=== PATIENT | male | born 1960 | race Caucasian/White ===

== ENCOUNTER 2022-02-10 10:36 | Emergency (ER) | payer BC, SELFPAY ==
[~2022-02-10] VITALS: Ht 167.6 cm; Wt 95.5 kg
[~2022-02-10 10:36] MED LIST: AMIO200T61 PO; ASPI-1265 PO; BUSP10TA11 PO; CARV-49 PO; CLOP75TA34 PO; LISI-222 PO; SERT-128 PO; SIMV40TA PO
[2022-02-10] MEDS: CefTRIAXone 2gm/NS 100ml IVPB 100 ML IV ONE (13:01)
[2022-02-10 13:10] LABS: BASOPHILS % (AUTO) 0.3 % (0-1); EOSINOPHILS # (AUTO) 0.1 X10'3 (0-0.9); EOSINOPHILS % (AUTO) 1.1 % (0-6); HEMATOCRIT 38.7 % (42.0-52.0); HEMOGLOBIN 13.3 g/dl (14.0-17.9); LYMPHOCYTES # (AUTO) 1.4 X10'3 (1.1-4.8); LYMPHOCYTES % (AUTO) 13.9 % (21-51); MEAN CORPUSCULAR HEMOGLOBIN 33.7 PG (27.0-31.0); MEAN CORPUSCULAR HGB CONC 34.3 g/dL (33.0-36.5); MEAN CORPUSCULAR VOLUME 98.2 FL (78-98); MEAN PLATELET VOLUME 9.6 FL (7.4-10.4); MONOCYTES # (AUTO) 1.1 X10'3 (0-0.9); MONOCYTES % (AUTO) 10.4 % (2-12); NEUTROPHILS # (AUTO) 7.5 X10'3 (1.8-7.7); NEUTROPHILS % (AUTO) 74.3 % (42-75); PLATELET COUNT 134 X10'3 (140-440); RED BLOOD COUNT 3.95 X10'6 (4.70-6.10); RED CELL DISTRIBUTION WIDTH 12.9 % (11.5-14.5); WHITE BLOOD COUNT 10.2 X10'3 (4.5-11.0)
[2022-02-10 13:27] LABS: ALANINE AMINOTRANSFERASE 31 U/L (12-78); ALBUMIN 3.7 G/DL (3.4-5.0); ALBUMIN/GLOBULIN RATIO 0.8 (1.1-1.5); ALKALINE PHOSPHATASE 65 IU/L (46-116); ANION GAP 6 (8-16); ASPARTATE AMINO TRANSFERASE 25 U/L (10-37); BILIRUBIN,TOTAL 0.6 MG/DL (0.1-1.0); BLOOD UREA NITROGEN 22 MG/DL (7-18); CALCIUM 8.7 MG/DL (8.5-10.1); CHLORIDE 104 MMOL/L (99-107); CREATININE 1.05 MG/DL (0.60-1.10); GLUCOSE 109 MG/DL (70-104); SODIUM 134 MMOL/L (135-145); TOTAL CARBON DIOXIDE 23.6 MMOL/L (24-32); TOTAL PROTEIN 8.1 G/DL (6.4-8.2); eGFR 71 ML/MIN
[2022-02-10] MEDS ORDERED: SULF1TAB48 PO (13:32)
[2022-02-10] MEDS ORDERED: CEPH-585 PO (13:32)
[2022-02-10 13:38] LABS: MAGNESIUM 2.2 MG/DL (1.5-2.4)
[2022-02-10] MEDS: vancomycin/NS 1 GM ADD-VANTAGE 250 ML IV ONE (13:48)
[2022-02-10 15:26] VITALS: BP 122/80
== END 2022-02-10 15:27 | disposition home or self-care (01) ==
LOC: ER 10:36
DX: L03.114 Cellulitis of left upper limb (principal); I10 Essential (primary) hypertension; F41.9 Anxiety disorder, unspecified; F32.A Depression, unspecified; Z79.82 Long term (current) use of aspirin; Z79.2 Long term (current) use of antibiotics; Z79.899 Other long term (current) drug therapy
CPT/HCPCS: 36415; 80053; 83605; 83735; 84145; 85025; 87040; 96365; 96366; 96368; 99284; J0696; J3370

== ENCOUNTER 2024-08-16 08:41 | Outpatient (CLI) | payer BC ==
[~2024-08-16 08:41] MED LIST changes: +AMI200T PO; -AMIO200T61 PO; +SIMV-343 PO; -SIMV40TA PO
== END 2024-08-16 23:59 | disposition home or self-care (01) ==
LOC: RAD 08:41
PROVIDERS: ATTEND Podiatrist Foot & Ankle Surgery
DX: M19.071 Primary osteoarthritis, right ankle and foot (principal); M21.171 Varus deformity, not elsewhere classified, right ankle; M77.31 Calcaneal spur, right foot; M25.471 Effusion, right ankle; M25.871 Other specified joint disorders, right ankle and foot
CPT/HCPCS: 73700

== ENCOUNTER 2025-07-19 05:50 | Day surgery (SDC) | payer BC, MEDICARE ==
[2025-07-12 10:38] LABS: MEAN PLATELET VOLUME 9.3 FL (7.4-10.4); PRE OP HEMATOCRIT 36.8 % (42.0-52.0); PRE OP HEMOGLOBIN 12.9 g/dL (14.0-17.9); PRE OP PLATELET COUNT 118 X10'3 (140-440); PRE OP WHITE BLOOD COUNT 5.6 10'3 (4.8-10.8); RED CELL DISTRIBUTION WIDTH 12.6 % (11.5-14.5)
[2025-07-12 10:56] LABS: CREATININE 1.05 MG/DL (0.60-1.10); PRE OP ALT 46 U/L (30-65); PRE OP ANION GAP 9 (8-16); PRE OP AST 38 U/L (10-37); PRE OP BILIRUB, TOTAL 0.4 MG/DL (0.0-1.0); PRE OP POTASSIUM 4.6 MMOL/L (3.4-5.1); PRE OP SODIUM 138 MMOL/L (135-145); TOTAL CARBON DIOXIDE 23.6 MMOL/L (24-32); eGFR 71 ML/MIN
[2025-07-12 11:17] LABS: PRE OP GLUCOSE 108 MG/DL (70-104)
--- NOTE | 2025-07-12 11:40 | RADIOLOGY REPORT ---
DI CHEST,TWO VIEWS, HISTORY: PREOP COMPARISON: None None TECHNICAL DATA: 2 view of the chest was obtained. FINDINGS: Lines and tubes: A cardiac pacer is noted. Cardiomediastinal silhouette: normal Pulmonary vasculature: normal Lung expansion: normal Lung airspace: normal Lung interstitium: normal Pleura: normal Pneumothorax: no Bones: Unremarkable Other: no IMPRESSION: No acute intrathoracic abnormality.
[2025-07-19] VITALS (18 sets, daily range): BP systolic 94–139; BP diastolic 63–92; PULSE 54–79; RESP 13–17; TEMP 96.9; O2SAT 94–100
[~2025-07-19] VITALS: Ht 170.2 cm; Wt 91.0 kg
[2025-07-19] MEDS: DOCUMENT DATE & TIME OF BETA-BLOCKER PO ONE (05:00)
[~2025-07-19 05:50] MED LIST changes: +ALBU8HFA PO; -AMI200T PO; +AMLO-382 PO; -ASPI-1265 PO; -CARV-49 PO; +CARV-50 PO; -CLOP75TA34 PO; -LISI-222 PO; +ROSU40TA89 PO; -SIMV-343 PO; +ringers solution, lacted 1,000 ML IV SCH
[2025-07-19] MEDS: ceFAZolin 2gm/dext,iso 50mL 50 ML IV ONE (05:53)
[2025-07-19] MEDS: ringers solution, lacted 1,000 ML IV SCH ×2 (06:11→09:05)
[2025-07-19] MEDS: VANCOMYCIN/H2O 1.5g/300mL PB 300 ML IV ONE (06:12)
[2025-07-19] MEDS ORDERED: BUPIVACAINE/MELOXICAM 14 ML VIAL IL ONE (06:38)
[2025-07-19] MEDS ORDERED: cloNIDine hcl/PF 100mcg/ml inj ONE (07:13)
[2025-07-19] MEDS ORDERED: fentaNYL/PF 50MCG/1 ML 2ML syringe ONE (07:16)
[2025-07-19] MEDS ORDERED: MIDAZolam 1 MG/ML 5ML VIAL ONE (07:17)
[2025-07-19] MEDS ORDERED: propofol inj 20 ML IV ONE (07:18)
[2025-07-19] MEDS ORDERED: HYDROcodone/acetaminophen 10/325mg tab PO PRN (07:20)
[2025-07-19] MEDS: BUPIVACAINE/MELOXICAM 14 ML VIAL IL ONE (08:16)
[2025-07-19] MEDS ORDERED: ROPIVAcaine 0.5% (5mg/ml) 30ml vial ONE (08:56)
[2025-07-19] MEDS ORDERED: morphine 4 MG/ML inj SYRINge IV PRN (09:05)
[2025-07-19] MEDS ORDERED: hydrALAZINE 20mg/ml inj. IV PRN (09:05)
[2025-07-19] MEDS ORDERED: labetalol 20mg/4ml (5mg/ml) syringe IV PRN (09:05)
[2025-07-19] MEDS ORDERED: HYDROmorphone/PF 0.2 MG/ML SYRINGE IV PRN ×2 (09:05)
[2025-07-19] MEDS ORDERED: ondansetron/PF 4mg/2ml inj IV PRN (09:05)
[2025-07-19] MEDS ORDERED: acetaminophen 1,000mg/100ml IV 100 ML IV PRN (09:05)
--- NOTE | 2025-07-19 09:32 | DISCHARGE SUMMARY ---
Discharge Summary Ortho [facility] ~ Discharge Summary Discharge Date: Jul 19, 2025 *Problems/Diagnosis: (1) S/P total knee arthroplasty Admission Diagnosis: osteoarthritis Discharge Diagnosis\Comment: see above Operations\Procedures see above Consultants: none Complications: none Condition on DC: Stable Discharge Summary: Patient underwent total knee arthroplasty on date of admission no complications in surgery. Patient all recovery was uneventful. The patient is safe to discharge home so long as he meets discharge criteria. Medications Home Meds: Home Medications Active Reported Carvedilol 12.5 Mg Tablet 1 Tab PO Q12H 30 Days Pro-Air Inhaler (Albuterol) 8.5 Gm Inhaler 1-2 Puffs PO Q4H PRN Amlodipine-Valsartan 10-320 mg (Amlodipine/Valsartan) 10 Mg-320 Mg Tablet 1 Tab PO DAILY Rosuvastatin Calcium 40 Mg Tablet 1 Tab PO HS Zoloft (Sertraline HCl) 100 Mg Tablet 150 Mg PO HS Buspar* (Buspirone HCl) 10 Mg Tablet 1 Tab PO BID Supervising Physician Supervising Physician: Dr. Edison Delvalle Problem Qualifiers (1) S/P total knee arthroplasty: Qualified Codes: Z96.652 - Presence of left artificial knee joint MARGARITA CLAYTON Jul 19, 2025 09:32
--- NOTE | 2025-07-19 09:51 | OPERATIVE REPORT ---
Operative Report Operative Report OPERATIVE REPORT [facility] [address] [place] [address] Date of service: July 19, 2025 PREOPERATIVE DIAGNOSIS M17..16 Unilateral primary osteoarthritis, left knee POSTOPERATIVE DIAGNOSIS M17..16 Unilateral primary osteoarthritis, left knee Operation Performed 60951 Total Knee Arthro[id number] Computer Assisted Navigation Musculoskeletal - Imageless Procedure: Computer-assisted, robotically-assisted, left total knee arthroplasty. Surgeon: Dr. Edison Delvalle Song Plugger: Elva Prabhakar PA-C Anesthesiologist: Dr. Guido Anesthesia: Spinal anesthetic and regional blocks Indications: 65-year-old male who has chronic osteoarthritis of the left knee with severe pain and limitation of activities despite extensive non-operative management. This patient has had extensive conservative treatment of knee joint arthritis, including rest, external joint support, anti-inflammatory medications, physical therapy, and corticosteroid injection. Physical therapy has been provided, along with a home exercise program prior to making the decision to proceed with surgical treatment. This therapeutic intervention did not provide any substantial relief of symptoms or improvement in function. The patient has been utilizing a cane, set of crutches, or walker, for more than 3 months prior to deciding to proceed with surgery. These interventions have not provided sufficient relief of pain to allow improvement in function. The patient has utilized non-steroidal anti-inflammatory medications for relief of pain over an extended period of time (more than 2 months), and has not experienced sufficient improvement in symptoms. Despite these treatments, this patient has continued difficulties with pain and limited function. They are unable to walk long distances, do vigorous activities, sit or sleep comfortably. Total knee replacement is the next reasonable step in terms of treatment. 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 This facilitated operative exposure, manipulation and handling of tissues, placement of any implants, and accomplishment of wound closure. Findings: There was indeed a very severely arthritic knee, with loss of cartilage, exposed bone, and marginal osteophytes. The medial compartment was particularly bad. A 7 degree varus deformity and 2 degree flexion contracture were measured preoperatively. Post operative alignment was 0 varus, and 1 degree extension. Complications: None Estimated Blood Loss: 150 mL Implants: A [employer] CR total knee system was utilized with a size 7 left bone ingrowth femoral component, and a size E left bone ingrowth tibial component. The 10 mm medial congruent left tibial insert was utilized. The [employer] robotically assisted total knee arthroplasty system and computer was utilized. Procedure: The risks, benefits, expected results, and possible complications of the planned procedure had been explained to the patient and informed consent obtained. The patient was taken to the operating room and underwent a spinal anesthetic. The patient was placed in the supine position on the operating table, and the left leg was prepped and draped in the usual fashion. A timeout was taken prior to surgery, confirming patient identification, operative side operative site, planned procedure, administration of pre-operative antibiotics, site marking, and presence of all necessary implants and instruments, x-rays and equipment. A standard anterior, slightly mediall approach was performed with a medial parapatellar arthrotomy, and a VMO split. Time was then spent removing excessive synovial tissue and exposing the medial and lateral gutters, as well as moving the anterior sections of the residual menisci. The patella was mobilized to be able to be retracted laterally. This gave exposure of the anterior aspect of the knee. Attention was then directed to the patella. The patella was in excellent condition so we decided not to resurface the patella. Infrared arrays were then placed on the femur and the tibia. Utilizing the [employer] computer system, the hip, knee, and ankle were landmarked in usual fashion. The initial alignment measurements were then taken confirming the above listed deformity. Surgical planning was then carried out on the computer, confirming alignment of components, sizing, and gap balancing. Appropriate soft tissue releases were performed. The robot was then utilized to make the distal femoral cut. The femur was prepared in 4 degrees of flexion and neutral coronal alignment. The distal femoral 4 in 1 block was placed with the robot, and the remaining femoral cuts also performed. The robot was then utilized to cut the proximal tibia in 5 degrees of flexion and neutral coronal alignment. The computer was then utilized to check longitudinal alignment and soft tissue balance, and this confirmed excellent alignment. Next the dynamic balancing block was utilized to check and adjust soft tissue balancing. The trial implant was sized and properly rotated, and the peg drilling performed. Final check of alignment and balancing was then carried out with trials in place, as well as final removal and cleaning up of soft tissue such as meniscal remnants and osteophytes. Finally, attention was directed to the proximal tibia. The implant was sized and properly rotated, and the fin punch performed. Final check of alignment and balancing was then carried out, as well as final removal and cleaning up of soft tissue such as meniscal remnants and osteophytes. The tibia was impacted with the mallet, seating it quite nicely in its proper rotational alignment. The femoral cuts were cleaned with a pulsating lavage and then dried with the lap sponges, and the femur was impacted into position with a mallet. Pressure was held on the femoral component and tibia by placing a spacer and bringing the leg to full extension and applying axial and hyperextension force. After final irrigation and suction of excess fluid. The knee was infiltrated with Zynrelief for postoperative pain control. The tibial and femoral navigation pins and arrays were removed. The wound was then closed in layers including retinacular closure, subcutaneous tissue, and skin. Sterile dressing was applied and the patient was returned to the recovery room in satisfactory condition. Electronically Signed by: Edison Delvalle MD Doctor, Orthopedic Surgery Signed on: 07/19/2025 09:50 AM Problems/Diagnosis: (1) S/P total knee arthroplasty Problem Qualifiers (1) S/P total knee arthroplasty: Qualified Codes: Z96.652 - Presence of left artificial knee joint EDISON DELVALLE MD Jul 19, 2025 09:51
[2025-07-19] MEDS ORDERED: ceFAZolin 2gm/dext,iso 50mL 50 ML IV ONE (16:00)
[2025-07-19] MEDS ORDERED: VANCOMYCIN/H2O 1.5g/300mL PB 300 ML IV ONE (18:00)
== END 2025-07-19 17:40 | disposition home or self-care (01) ==
LOC: PAS 05:50 → ORTHO 4S 11:20 → PAS 17:40
PROVIDERS: ATTEND Orthopaedic Surgery
DX: M17.12 Unilateral primary osteoarthritis, left knee (principal); G89.18 Other acute postprocedural pain; I10 Essential (primary) hypertension; I25.10 Atherosclerotic heart disease of native coronary artery without angina pectoris; J44.9 Chronic obstructive pulmonary disease, unspecified; F41.9 Anxiety disorder, unspecified; I25.2 Old myocardial infarction; Z87.891 Personal history of nicotine dependence; Z79.1 Long term (current) use of non-steroidal anti-inflammatories (NSAID); Z79.891 Long term (current) use of opiate analgesic; Z79.899 Other long term (current) drug therapy; Z95.810 Presence of automatic (implantable) cardiac defibrillator; Z98.890 Other specified postprocedural states
CPT/HCPCS: 20985; 27447; 36415; 71046; 80053; 82948; 85025; 87081; C1776; C9088; J0735; J2250; J2704; J2795; J3010; J3375; J7030; J7120; Z7506; Z7508; Z7512; A4215; A6449; A7000; G0378; J3373; J7040